=== PATIENT | female | born 1990 | race Caucasian/White ===

== ENCOUNTER 2016-07-11 14:59 | Emergency (ER) | payer BC ==
[2016-07-11 17:38] VITALS: BP 156/93
--- NOTE | 2016-07-11 19:45 | UC ---
Complaint Female HPI - HPI Summary HPI Summary: 25 yo female c/o dark green ting vag d/c with foul odor x approx 6 days. Last sexual intercourse 6 days ago. Replaced Nuvaring that day as well. No pelvic pain, no fever, no rash, no pruritus. No GI sx. No change in urinary habits. 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 Time Seen by Provider: 07/11/16 19:18 Hx Obtained From: Patient Hx Last Menstrual Period: 06/30/16 Onset/Duration: Gradual Onset - Allergies/Home Medications Allergies/Adverse Reactions: Allergies Allergy/AdvReac Type Severity Reaction Status Date / Time No Known Allergies Allergy Verified 03/18/16 17:25 PMH/Surg Hx/FS Hx/Imm Hx Endocrine History Of: Denies: Diabetes, Thyroid Disease Cardiovascular History Of: Denies: Cardiac Disorders, Hypertension Respiratory History Of: Denies: COPD, Asthma GI/ History Of: Denies: Ulcer - Surgical History Surgical History: None Surgery Procedure, Year, and Place: denies - Family History Family History: miscarriage - Social History Alcohol Use: Occasionally Alcohol Amount: 3-4 cocktails Substance Use Type: None Smoking Status (MU): Light Every Day Tobacco Smoker Amount Used/How Often: once per week - Immunization History Most Recent Influenza Vaccination: denies Review of Systems Constitutional: Negative Skin: Negative Eyes: Negative ENT: Negative Respiratory: Negative Cardiovascular: Negative Gastrointestinal: Negative Genitourinary: Other - see hpi Motor: Negative Neurovascular: Negative Musculoskeletal: Negative Neurological: Negative Psychological: Negative All Other Systems Reviewed And Are Negative: Yes Physical Exam Triage Information Reviewed: Yes Appearance: Well-Nourished Vital Signs: Initial Vital Signs Temp 98.7 F 07/11/16 17:31 Pulse 73 07/11/16 17:31 Resp 16 07/11/16 17:31 BP 156/93 07/11/16 17:31 Pulse Ox 100 07/11/16 17:31 Vital Signs Reviewed: Yes Eye Exam: Normal Neck exam: Normal Respiratory Exam: Normal Cardiovascular Exam: Normal Abdominal Exam: Other Abdomen Description: Positive: Other: - Nontender pelvic examination. Normal external female genitalia. No sores / rash noted. Cervix mild redness, c/w recent nuvaring removal (while in the restroom here) Musculoskeletal Exam: Normal Neurological Exam: Normal Psychological Exam: Normal Skin Exam: Normal Complaint Female Dx - Course Course Of Treatment: No new problems. Retained FB removed. I suspect odor and d/c is related to fb. Cx's sent as well. Will rx via doxycycline, cx's pending. She will use back up method re control for this cycle. Avoid intercourse until resuls of tests back, and pt is feeling better. Will seek medical attention for worse or new problems. Questions answered to the best of my ability - Differential Dx/Diagnosis Provider Diagnoses: Vaginitis. 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
== END 2016-07-11 20:22 | disposition home or self-care (01) ==
LOC: UCEAST 14:59
DX: N76.0 Acute vaginitis (principal); T19.2XXA Foreign body in vulva and vagina, initial encounter; X58.XXXA Exposure to other specified factors, initial encounter; Y93.9 Activity, unspecified; Y92.89 Other specified places as the place of occurrence of the external cause; Z32.02 Encounter for pregnancy test, result negative; F17.210 Nicotine dependence, cigarettes, uncomplicated
CPT/HCPCS: 81003; 84702; 87070; 87077; 87186; 99212; G0463

== ENCOUNTER 2016-07-12 16:14 | Emergency (ER) | payer BC ==
[2016-07-12 16:30] VITALS: BP 120/83
[2016-07-12] MEDS ORDERED: cefTRIAXone VIAL(*) 250 MG VIAL IM ONE (16:35)
--- NOTE | 2016-07-12 16:38 | UC ---
Progress - Progress Note Progress Note: Please see Dr. Rivera's not from yesterday Pt's Affirm and gc/chlamydia swabs were switched and went into the wrong medium She felt patients clinically should have a shot a rocephin Patient was called and told to come in for the shot. vital signs reviewed med list and allergies reveiwed exam not done
[2016-07-12] MEDS ORDERED: Lidocaine 1% MPF* 2 ML VIAL ONE (16:45)
--- NOTE | 2016-08-01 06:56 | UC ---
UC General HPI - HPI Summary HPI Summary: Please review qual chart from prior visit <24 hrs ago Pt given a Medical Screening Exam only to make sure she could get a shot of rocephin She was seen the day befor by Dr. Rivera Error was made in collecting specimens Dr. Rivera was notified by lab earlier in day She requested pt return for a shot of rocephin as she felt her clinical situation warranted it. Dr. Rivera called the patient and instructed her to return. This happened about the time of change of shift and Dr. Rivera requested I order the shot when the patient came in. - History of Current Complaint Chief Complaint: UCGeneralIllness Stated Complaint: HERE FOR A SHOT Pain Intensity: 0 - Allergy/Home Medications Allergies/Adverse Reactions: Allergies Allergy/AdvReac Type Severity Reaction Status Date / Time No Known Allergies Allergy Verified 03/18/16 17:25 PMH/Surg Hx/FS Hx/Imm Hx Previously Healthy: Yes Endocrine History Of: Denies: Diabetes, Thyroid Disease Cardiovascular History Of: Denies: Cardiac Disorders, Hypertension Respiratory History Of: Denies: COPD, Asthma GI/ History Of: Denies: Ulcer - Surgical History Surgical History: None Surgery Procedure, Year, and Place: denies - Family History Known Family History: Positive: Other - see yesterdays qual chart Family History: miscarriage - Social History Alcohol Use: Weekly Alcohol Amount: 3-4 cocktails Substance Use Type: None Smoking Status (MU): Never Smoked Tobacco Amount Used/How Often: once per week - Immunization History Most Recent Influenza Vaccination: denies Review of Systems Constitutional: Negative Skin: Negative Eyes: Negative ENT: Negative Respiratory: Negative Cardiovascular: Negative Gastrointestinal: Negative Genitourinary: Negative Motor: Negative Neurovascular: Negative Musculoskeletal: Negative Neurological: Negative Psychological: Negative All Other Systems Reviewed And Are Negative: Yes Physical Exam Triage Information Reviewed: Yes Appearance: Well-Appearing Vital Signs: Initial Vital Signs Temp 98.8 F 07/12/16 16:25 Pulse 58 07/12/16 16:25 Resp 18 07/12/16 16:25 BP 120/83 07/12/16 16:25 Pulse Ox 99 07/12/16 16:25 Vital Signs Reviewed: Yes Eyes: Positive: Conjunctiva Clear Respiratory: Positive: No respiratory distress, No accessory muscle use Neurological: Positive: Alert Psychological Exam: Normal Skin Exam: Normal Course/Dx - Course Course Of Treatment: allergies reviewed. history and complete physical not preformed by me - Differential Dx - Multi-Symptom Provider Diagnoses: medical screening exam. pt medically cleared for IM injection of rocephin Discharge - Discharge Plan Condition: Stable Disposition: HOME Patient Education Materials: Ceftriaxone (By injection) Referrals: Yomaira Thorne MD [Primary Care Provider] - If Needed Additional Instructions: please refer to yesterday's D/C instructions
== END 2016-07-12 17:05 | disposition home or self-care (01) ==
LOC: UCEAST 16:14
DX: N76.0 Acute vaginitis (principal)
CPT/HCPCS: 96372; 99211; G0463; J0696